=== PATIENT | female | born 1960 ===

== ENCOUNTER 2018-10-06 00:48 | Day surgery (SDC) | payer OTHER ==
[~2018-10-06] VITALS: Ht 177.8 cm; Wt 93.4 kg
[~2018-10-06 00:48] MED LIST: BIOT1TAB2 PO; CLINDAMYCIN 300 MG PO; DAPA1TAB5 PO; DULO60CA56 PO; GABA-549 PO; TRAM-420 PO; ZOLP-1 PO
[2018-10-06] MEDS ORDERED: METOCLOPRAMIDE 10 MG/2 ML SDV ONE (08:14)
[2018-10-06] MEDS ORDERED: ONDANSETRON 4 MG/2 ML VIAL ONE (08:14)
[2018-10-06] MEDS ORDERED: LIDOCAINE MPF 1% 5 ML VIAL ONE (08:14)
[2018-10-06] MEDS ORDERED: PROPOFOL EMUL(*) 10MG/ML 20 ML 20 ML ONE (08:14)
[2018-10-06] MEDS ORDERED: DEXAMETHASONE SOD 4 MG/ML VIAL ONE (08:15)
[2018-10-06] MEDS ORDERED: fentaNYL CITR 100 MCG/2 ML AMP ONE (08:15)
--- NOTE | 2018-10-06 09:15 | NUR ---
pt arrived early for preop, discussed option of leaving and coming back at scheduled preop time, pt opted to start preop early and be able to rest until surgery time.
[2018-10-06 09:31] VITALS: BP 136/81
[2018-10-06] MEDS: NORMOSOL R SOLN(*) 1000 ML BAG 1,000 ML IV PRN ×2 (09:48→14:42)
--- NOTE | 2018-10-06 11:30 | NUR ---
PT CONTINUES TO REPORT FEELING COMFORTABLE, DENIES NEEDS AT THIS TIME
[2018-10-06] MEDS ORDERED: LIDOCAINE/SOD BICARB 8.4% SYR ID ONE (11:50)
[2018-10-06] MEDS ORDERED: ceFAZolin(*) 2GM/D5W 50ML 50 ML IVPB ONE (11:50)
[2018-10-06] MEDS ORDERED: FAMOTIDINE 20 MG TAB PO ONE (11:50)
[2018-10-06] MEDS ORDERED: MIDAZOLAM 2 MG/2 ML VIAL IVP PRN (11:50)
[2018-10-06] MEDS ORDERED: ROPIVACAINE 0.2% 20 ML VIAL ONE (12:08)
[2018-10-06] MEDS ORDERED: NEOMYCIN/POLYMYX/BACITR 30 GM TP ONE (15:33)
[2018-10-06] MEDS ORDERED: CLIN300C99 PO (16:06)
--- NOTE | 2018-10-06 16:38 | OPERATIVE REPORT 1 ---
EVENT DATE: October 06, 2018 SURGEON: Kevin Haley MD ANESTHESIOLOGIST: Dwight Logan MD ANESTHESIA: General. 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 POSTOPERATIVE DIAGNOSIS Diabetic toe infection affecting right second toe. PROCEDURE PERFORMED Resection of right second toe through base of proximal phalanx, [id number], with deep cultures. ESTIMATED BLOOD LOSS Minimal. INTRAVENOUS FLUIDS 1900. TOURNIQUET TIME Approximately 20 minutes. SPECIMENS Aerobic and anaerobic cultures sent to the lab. COMPLICATIONS No complications. SUMMARY OF PROCEDURE The patient was reevaluated in the preoperative holding area. We had seen her on Tuesday where she had presented in the clinic with a rapidly progressing lesion on the lateral border of the second toe with purulent discharge and a substantial amount of pain. The whole toe was very swollen. There is a little less discharge now. She has been on an antibiotic, but she still has quite a bit of discomfort, and the toe remains red and very swollen. There is a large eschar over the lateral aspect of the great toe primarily involving the distal aspect of the middle phalanx and the distal phalanx. It extends up to the eponychial region of the nail. We brought her back to the operating room, and she underwent general anesthesia. We elevated the leg without using an Esmarch bandage and then inflated the tourniquet. I used a hemostat to examine the wound. It did go down to and include the bone and entered into the joint, but it did not appear to be particularly soft bone. Preoperative x-rays did not suggest osteomyelitis, though by definition if the bone is involved in a purulent discharge with the joint as well, this is essentially involvement of the bone, and given her history, I felt that amputation was still the best course of action. We planned a fishmouth incision, dissected down to the proximal phalanx, and went through the base of the proximal phalanx with a saw. I then beveled the margin so it would not have a sharp edge. I also evaluated and identified both neurovascular bundles and cut them back with bipolar cautery to minimize tenderness at the amputation stump. I then checked the closure and irrigated the wound. The closure would yield a small nub of soft tissue in between the first and third toes, which I felt would make the closure site a little bit more distant from the crease of the toe and hopefully would allow it to remain a little bit sack cleaner. We closed with nylon. The application of a dry, sterile dressing and local anesthetic.were followed by deflation of the tourniquet, and then she was transferred to the recovery area in stable condition with a postop shoe. TITO
[2018-10-06 16:45] VITALS: BP 116/61
[2018-10-06 16:59] VITALS: BP 85/57
[2018-10-06 17:00] VITALS: BP 105/70
[2018-10-09] MEDS ORDERED: ceFAZolin(*) 2GM/D5W 50ML 50 ML IVPB ONE (11:50)
== END 2018-10-06 16:45 | disposition home or self-care (01) ==
LOC: OR 00:48
PROVIDERS: ATTEND Orthopaedic Surgery Hand Surgery
DX: L08.89 Other specified local infections of the skin and subcutaneous tissue (principal)
CPT/HCPCS: 28126; 36416; 82948; 87070; 87073; 87077; 87176; 87186; 87205; 88305; 88311; J1100; J2001; J2250; J2405; J2704; J2765; J2795; J3010; J0690